=== PATIENT | female | born 2000 | race Two or more races ===

== ENCOUNTER 2025-07-23 22:42 | Inpatient (IN) | payer MEDICAID, SELFPAY ==
[2025-07-23] VITALS (16 sets, daily range): BP systolic 120; BP diastolic 66; PULSE 69–94; RESP 16–99; TEMP 36.9; O2SAT 81–100; BMI 35.0
[2025-07-23 23:15] LABS: ROM Kit Exp Date# 04/11/28; ROM Kit Lot # 58106258; ROM Swab Mixed By: KE; Rupture of Fetal Membranes Positive (Negative); Swb Mxed in Solvent 1 min? Yes
[2025-07-23] MEDS: RINGERS LACTATED 1000 ML 1,000 ML 100 ML IV (23:45)
[2025-07-24] VITALS (59 sets, daily range): BP systolic 110–151; BP diastolic 60–88; PULSE 67–100; RESP 16–25; TEMP 36.6–36.9; O2SAT 97–100; BMI 35.0
[2025-07-24 00:29] LABS: Amphetamine/Metham Scrn,Ur OB Negative (Negative); Benzoylecgonine Screen, Ur OB Negative (Negative); Opiate Screen,Urine OB Negative (Negative); THC Screen,Urine OB Negative (Negative)
[2025-07-24 00:40] LABS: Basophils # (Auto) 0.0 Thou/mm3 (0.0-0.2); Basophils % (Auto) 0 % (0-2.5); Eosinophils # (Auto) 0.1 Thou/mm3 (0.0-0.5); Eosinophils % (Auto) 2 % (0-10); Hematocrit 32.4 % (36.0-46.0); Hemoglobin 9.9 g/dL (12.0-16.0); Immature Granulocytes Auto 0.03 Thou/mm3 (0.00-0.00); Lymphocytes # (Auto) 1.5 Thou/mm3 (1.0-4.8); Lymphocytes % (Auto) 18 % (10-50); Mean Corpuscular HGB Conc 30.6 g/dl (31.0-37.0); Mean Corpuscular Hemoglobin 22.0 pg (25.0-35.0); Mean Corpuscular Volume 72 fL (80-100); Monocytes # (Auto) 0.4 Thou/mm3 (0.0-0.8); Monocytes % (Auto) 5 % (0-12); Neutrophils # (Auto) 6.1 Thou/mm3 (1.8-7.7); Neutrophils % (Auto) 75 % (37-80); Nucleated Red Blood Cell # 0.00 Thou/mm3 (0.00-0.00); Nucleated Red Blood Cell % 0 /100 WBC (0); Platelet Count 248 Thou/mm3 (140-440); RDW Standard Deviation 40.4 fL (36.4-46.3); Red Blood Count 4.51 Miln/mm3 (4.00-5.20); White Blood Count 8.1 Thou/mm3 (3.6-11.0)
[2025-07-24 00:51] LABS: Alanine Aminotransferase < 7 U/L (10-49); Albumin, Serum 4.0 gm/dL (3.5-5.0); Albumin/Globulin Ratio 1.9 (1.2-2.2); Alkaline Phosphatase 198 U/L (46-116); Anion Gap 12 (7-16); Aspartate Amino Transferase 16 U/L (0-34); BUN/Creatinine Ratio 12 Ratio (12-20); Bilirubin,Total 0.5 mg/dL (0.3-1.2); Blood Urea Nitrogen 7 mg/dL (9-23); Calcium 9.2 mg/dL (8.3-10.6); Calcium (Corrected) 9.2 mg/dL (8.5-10.1); Carbon Dioxide 19.3 mMol/L (20.0-31.0); Chloride 108 mMol/L (98-107); Creatinine (Component) 0.6 mg/dL (0.6-1.3); Estimated Creatinine Clearance 158.1 mL/min (>60); Globulin 2.1 gm/dL (2.3-3.5); Glucose 59 mg/dL (74-106); Osmolality,Calculated 273 (275-295); Potassium 4.3 mMol/L (3.4-5.1); Sodium 139 mMol/L (136-145); Total Protein 6.1 gm/dL (5.7-8.2); eGFR > 60 See Note
[2025-07-24 01:20] LABS: HIV (1&2) Antibody Rapid Non-Reactive
[2025-07-24] MEDS: RINGERS LACTATED 1000 ML 1,000 ML 100 ML IV (02:10)
[2025-07-24] MEDS: AZITHROMYCIN INJ 500 MG in SODIUM CHLORIDE 0.9% 250 ML 250 ML 250 MG IV (02:32)
[2025-07-24] MEDS: CITRIC ACID/SODIUM CITR 15 ML UDC (BICITRA) 30 ML PO (03:31)
[2025-07-24] MEDS: ceFAZolin/D5W 2 GM IV 2 GM/100 ML BAG IV (03:31)
[2025-07-24] MEDS: FAMOTIDINE INJ 10 MG/ML VIAL 2 ML 20 MG IV (03:32)
[2025-07-24 03:55] LABS: Syphilis Nonreactive (Nonreactive)
--- NOTE | 2025-07-24 04:47 | ESHP_ITS ---
Documentation for date of: 07/24/25 OB Labor/Induct. HPI History of Present Illness Chief complaint: Ruptured membranes, contractions, previous : 2 Para: 1 Term pregnancies: 0 pregnancies: 1 Living children: 1 History of Abortions: Spontaneous and Elective: 0 History of Vaginal deliveries: 0 History of sections: Yes (2020) History of : No KENDALL: 07/26/25 Gestational Age (weeks): 39 Gestational Age (days): 5 History of present illness: The patient is a 24-year-old -1-0-1 at 39-5/7 weeks with an EDC of 07/26/2025 who presented to labor and delivery reporting ruptured membranes. She stated she had been ruptured since 2:00 in the morning the night before. At the time of presentation to labor and delivery her bag had been broken approximately 22 hours. The patient had just eaten so her surgery was delayed. She reported painful uterine contractions every 5 minutes. She had a history of a x one 3 years ago due to COVID. She stated she could not breathe very well and they had to deliver the baby by to improve her respiratory status. All her care is up to date in [place] per patient. She did not bring any records with her so we messi all labs. History of Present Dating criteria: other (Per patient LMP based on first trimester ultrasound. No records available.) Adequate Care: Yes (Per patient. No records available.) Ultrasounds: other (No records available) Obstetrical complications: none Medical complications: none Labs Maternal Blood Type: A Pos Labs: Negative: RPR and HIV and Unknown: Hepatitis B, Rubella Titre, Chlamydia, Gonorrhea, Herpes Type 1, Herpes Type 2, Group Beta Strep and Covid- 19 Past Medical History Surgical History SURGICAL: Positive Section (2020) Past Medical History Comments PMH COMMENT: Patient denies any significant medical problems including asthma diabetes or hypertension. She reports x 1 in 2021 She had some type of stitches on her leg for some type of accident. Meds Home Medications and Allergies Home Medications ?Medication ?Instructions ?Recorded ?Confirmed ?Type No Known Home Medications 07/23/2507/03 History Allergies Allergy/AdvReac Type Severity Reaction Status Date / Time No Known Allergies Allergy Verified 11/22/25 23:14 OB Exam Physical Exam Vital signs: Temp Pulse Resp BP Pulse Ox O2 Del Method 98.4 F 90 16 120/66 100 Room Air 07/23/25 22:59 07/23/25 23:01 07/23/25 22:59 07/23/25 23:01 07/24/25 03:42 07/23/25 22:46 Constitutional Constitutional: no acute distress Comments: Patient is alert and orient x 3 in no apparent distress Detailed Labor and Delivery Exam Membranes: ruptured Amniotic fluid: clear monitor accelerations: 15x15 monitor decelerations: 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: Moderate (-25) Contraction frequency (min): Every 5 minutes Contraction intensity: Moderate OB Results Labs 07/23/25 23:40 07/23/25 23:40 Labs: Short CBC 07/23/25 Range/Units 23:40 WBC 8.1 (3.6-11.0) Thou/mm3 Hgb 9.9 L (12.0-16.0) g/dL Hct 32.4 L (36.0-46.0) % Plt Count 248 (140-440) Thou/mm3 BMP 07/23/25 23:40 Sodium 139 Potassium 4.3 Chloride 108 H Carbon Dioxide 19.3 L BUN 7 L Creatinine 0.6 Glucose 59 L Calcium 9.2 Liver Function 07/23/25 Range/Units 23:40 Total Bilirubin 0.5 (0.3-1.2) mg/dL AST 16 (0-34) U/L ALT < 7 L (10-49) U/L Alkaline Phosphatase 198 H (46-116) U/L Albumin 4.0 (3.5-5.0) gm/dL OB Assessment & Plan Assessment and Plan (1) Previous section complicating : Status: Acute Assessment and plan: Patient has status post uncomplicated repeat low-transverse section (2) Prolonged antepartum rupture of membranes: Status: Acute
--- NOTE | 2025-07-24 04:58 | OBDSUM_ITS ---
Data (Murray) Data Hx Section: Yes (2020) Maternal Blood Type: A Pos Rubella Titre: Unknown RPR: Non-reactive Labs: Negative: RPR and HIV and Unknown: Hepatitis B, Chlamydia, Gonorrhea, Herpes Type 1, Herpes Type 2 and Group Beta Strep : 2 Term: 0 : 1 Livin Abortions: Spontaneous & Theraputic: 0 Delivery Data (Murray) Labor Data Initiation of labor: Spontaneous ROM date: 07/23/25 ROM time: 02:00 Amniotic membrane rupture type: Spontaneous Amniotic fluid description: Clear Delivery Data EDC: 07/26/25 Date of arrival to unit: 07/23/25 Time of arrival to unit: 22:46 [place] delivery date: 07/24/25 [place] delivery time: 04:09 Gestational age (weeks): 39 Gestational age (days): 5 Placenta delivery date: 07/24/25 Placenta delivery time: 04:10 Delivered by: Tania Deng ([facility]) Delivery nurse: Xuan Willson nurse: edy Dragline Operator Helper at delivery: No Support person(s) at delivery: FOBasilio Other staff at delivery: JEREMY Owens Delivery Method Delivery method: Low Transverse Presentation: Vertex position: OA Anesthesia Type Anesthesia Type: Spinal Delivery Room Medications Delivery room medications: Pitocin 20 u IV Placenta Placenta delivery description: Manual Removal Cord blood sent to lab: No cord blood collection: Cord Blood Type EBL Estimated blood loss (ml): 400 Umbilical Cord cord description: 3 Vessels Additional Procedures See op report for further details Complications Complications: None [place] Data (Murray) Data 's gender: Male weight (gms): 3458.642 g 1 minute: 9 5 minutes: 9
--- NOTE | 2025-07-24 05:03 | ESOP_ITS ---
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 Her bag of been ruptured about 22 hours on presentation. AmniSure was positive and she was found to be grossly ruptured. She also is reporting painful contractions about every 5 minutes. She had a history of C- section x 1. All her care was in [place] and she just moved to [place] in the last few days. No records were available. She was admitted and consented for repeat low-transverse section. Pre-Op diagnosis: 1. IUP 39-5/7 weeks 2. Prolonged rupture of membranes 3. Active labor 4. Previous x 1 5. Unknown group B strep status\no records available. Post-Op diagnosis: Same Anesthesia type: Spinal Procedure description: After obtaining informed consent, the patient was brought back to the operating room and spinal anesthesia administered. She was then prepped and draped in the dorsal supine position with a leftward tilt in a normal sterile fashion. A Sanchez catheter was inserted into the patient's bladder. Patient was given 2 g of Ancef by anesthesia. A Pfannenstiel skin incision was made with a scalpel about an inch higher than her prior scar. This was done as her prior scar was quite wide and low on her abdomen. It was also thickened and abernathy a keloid scar. The Skin incision was carried down to the underlying fascia. The fascia was incised in the midline and the fascial incision extended laterally using [place] scissors. The superior aspect of the fascia was grasped with Ino clamps and the underlying rectus muscles dissected off using blunt and sharp dissection. This was repeated in the inferior aspect of the incision. The rectus muscles were in the midline, and the peritoneum was picked up and entered sharply using Metzenbaums. This was extended superiorly and inferiorly with good visualization of the bladder. The bladder blade was inserted and the uterus was incised in a low transverse fashion above the bladder reflection using a scalpel. The uterine incision was extended laterally using blunt dissection with the surgeon's fingers. The bag quintana was ruptured and clear fluid was noted. The bladder blade was removed and the was delivered atraumatically. As the infant was vigorous at , delayed cord clamping was performed for approximately 1 minute. The cord was then clamped and cut and the was handed off to the waiting pediatric staff. Cord blood was collected and cord gases were saved. The placenta was then manually removed and the uterus was exteriorized and cleared of all clots and debris. The uterine incision was repaired using 0 Monocryl in a running locked fashion. Excellent hemostasis was noted. The uterus was returned to the patient's abdominal cavity and copious irrigation carried out with warm normal saline. The uterine incision was reexamined and noted to be hemostatic. After ensuring the rectus muscles were hemostatic, these were reapproximated in the midline using a running suture of 0 Monocryl. The fascia was closed with 0 Vicryl in a running fashion. The subcutaneous tissues were irrigated and found to be hemostatic. These were reapproximated using a running suture of 2-0 plain. The skin was closed with subcuticular suture of 4-0 Monocryl. As the patient's prior skin piercing, wound to her leg, and prior section incision had a keloid scar, the incision was injected in a subcuticular fashion with dilute betamethasone to prevent future keloiding. The procedure was then terminated. The patient tolerated the procedure well, sponge, lap, needle, and instrument counts were correct x 2. The patient patient went to the recovery awake and in stable condition. The infant was with mom and dad in recovery in stable condition Fluids: crystalloid Fluid amount (mL): 1,000 Urine output (mL): 150 Specimen: none Implants: None Estimated blood loss (ml): 400 Findings: Liveborn male in the OA presentation with no nuchal cord no meconium. Apgars were 9 and 9. Weight was 7 pounds 10 ounces or approximately 3459 g. The placenta was complete spontaneous grossly normal. Tubes uterus ovaries appeared grossly normal. There is very little scar tissue present in the patient's abdomen and her lower uterine segment was thick. Complications: none Surgical staff Joni Mccormick INDUSTRIAL CLEANER Operation Date: 07/24/25 03:45 <No data on this case meets the specified criteria> Diagnosis Discharge Diagnosis (1) Prolonged antepartum rupture of membranes: Status: Acute (2) Previous section complicating : Status: Acute Problem details: Patient's status post uncomplicated repeat low-transverse section Problem List Completed Was Problem List Reviewed/Reconciled?: Yes
--- NOTE | 2025-07-24 07:14 | PC.NURSE ---
07/24/2025 0325: RECEIVED REPORT FROM MILEY TELLEZ RN, PATIENT IN TRIAGE WITH FOB PATIENT IS A REPEAT , RATES PAIN 6/10 WITH CONTRACTIONS, PATIENT PREPPED FOR SURGERY BY ROMAN TELLEZ RN, CONSENTS SIGNED, PATIENT TRANSFERRED TO OB OR VIA BED, UPON ARRIVAL AT OB OR, EFM X2 RESUMED PATIENT, FHR NOTED AT APPROX 135 BPM.
--- NOTE | 2025-07-24 07:45 | PC.LAC ---
07/24/2025 0650: RECEIVED VERBAL ORDERS TO PUT IN POST ORDERS
[2025-07-24] MEDS: OXYTOCIN in NS 20 units 20 UNIT/1,000 ML BAG 125 UNIT IV (08:21)
[2025-07-24] MEDS: DOCUSATE SOD 100 MG CAPSULE PO ×2 (08:21→21:05)
[2025-07-24 08:44] LABS: Chlamydia trachomatis PCR Negative (Not Detect); Neisseria Gonorrhoeae DNA PCR Negative (Not Detect); Trichomonas Negative (Negative)
[2025-07-24 13:26] LABS: Basophils # (Auto) 0.0 Thou/mm3 (0.0-0.2); Basophils % (Auto) 0 % (0-2.5); Eosinophils # (Auto) 0.0 Thou/mm3 (0.0-0.5); Eosinophils % (Auto) 0 % (0-10); Hematocrit 29.0 % (36.0-46.0); Hemoglobin 8.9 g/dL (12.0-16.0); Immature Granulocytes Auto 0.06 Thou/mm3 (0.00-0.00); Lymphocytes # (Auto) 0.5 Thou/mm3 (1.0-4.8); Lymphocytes % (Auto) 3 % (10-50); Mean Corpuscular HGB Conc 30.7 g/dl (31.0-37.0); Mean Corpuscular Hemoglobin 21.7 pg (25.0-35.0); Mean Corpuscular Volume 71 fL (80-100); Monocytes # (Auto) 0.1 Thou/mm3 (0.0-0.8); Monocytes % (Auto) 0 % (0-12); Neutrophils # (Auto) 14.0 Thou/mm3 (1.8-7.7); Neutrophils % (Auto) 96 % (37-80); Nucleated Red Blood Cell # 0.00 Thou/mm3 (0.00-0.00); Nucleated Red Blood Cell % 0 /100 WBC (0); Platelet Count 213 Thou/mm3 (140-440); RDW Standard Deviation 39.8 fL (36.4-46.3); Red Blood Count 4.11 Miln/mm3 (4.00-5.20); White Blood Count 14.6 Thou/mm3 (3.6-11.0)
[2025-07-24 21:20] LABS: Hepatitis B Surface Antigen Non Reactive (Non React); Rubella, IgG Antibody Reactive (Immune)
[2025-07-25] VITALS: BP 108/67; PULSE 78; RESP 17; TEMP 36.8; O2SAT 98
[2025-07-25 03:45] VITALS: BP 113/74; PULSE 86; RESP 18; TEMP 37.1; O2SAT 99
[2025-07-25 07:45] LABS: Basophils # (Auto) 0.0 Thou/mm3 (0.0-0.2); Basophils % (Auto) 0 % (0-2.5); Eosinophils # (Auto) 0.0 Thou/mm3 (0.0-0.5); Eosinophils % (Auto) 0 % (0-10); Hematocrit 27.7 % (36.0-46.0); Immature Granulocytes Auto 0.20 Thou/mm3 (0.00-0.00); Lymphocytes # (Auto) 0.9 Thou/mm3 (1.0-4.8); Lymphocytes % (Auto) 4 % (10-50); Mean Corpuscular HGB Conc 31.8 g/dl (31.0-37.0); Mean Corpuscular Hemoglobin 22.6 pg (25.0-35.0); Mean Corpuscular Volume 71 fL (80-100); Monocytes # (Auto) 0.7 Thou/mm3 (0.0-0.8); Monocytes % (Auto) 3 % (0-12); Neutrophils # (Auto) 21.1 Thou/mm3 (1.8-7.7); Neutrophils % (Auto) 92 % (37-80); Nucleated Red Blood Cell # 0.00 Thou/mm3 (0.00-0.00); Nucleated Red Blood Cell % 0 /100 WBC (0); Platelet Count 258 Thou/mm3 (140-440); RDW Standard Deviation 40.3 fL (36.4-46.3); Red Blood Count 3.90 Miln/mm3 (4.00-5.20); White Blood Count 22.9 Thou/mm3 (3.6-11.0)
[2025-07-25 07:50] LABS: Hemoglobin 8.8 g/dL (12.0-16.0)
[2025-07-25 08:00] VITALS: BP 123/73; PULSE 79; RESP 18; TEMP 36.8; O2SAT 99
[2025-07-25] MEDS: DOCUSATE SOD 100 MG CAPSULE PO ×2 (08:18→20:28)
--- NOTE | 2025-07-25 08:54 | PD.LDPPPRG ---
Subjective Subjective Interval history: The patient is a 24-year-old -1-0-2 postoperative day #1 status post repeat low-transverse section in labor. She delivered approximately 4:00 in the morning on 07/23/2025. This morning she is resting comfortably in bed holding her infant. The father the baby is at bedside. Patient states she is up out of bed, ambulating, voiding, tolerating a general diet. She is passing flatus. Her predelivery hemoglobin is 9.9. Postdelivery hemoglobin is 8.9. I will check one more hemoglobin tomorrow to ensure it is stable and order IV iron today. Exam Vital Signs Temp Pulse Resp BP Pulse Ox O2 Del Method 98.7 F 86 18 113/74 99 Room Air 07/25/25 03:45 07/25/25 03:45 07/25/25 03:45 07/25/25 03:45 07/25/25 03:45 07/25/25 03:45 Narrative Exam Patient is alert and orient x 3 in no apparent distress. Her fundus is firm about 2 cm below her umbilicus. Incision clean dry intact with Dermabond dressing in place. Extremities showed no significant edema or erythema. Objective Labs 07/25/25 07:32 07/23/25 23:40 Labs: Laboratory Results - last 24 hr 07/23/25 07/24/25 07/25/25 23:40 13:14 07:32 WBC 14.6 H D 22.9 H D RBC 4.11 3.90 L Hgb 8.9 L 8.8 L Hct 29.0 L 27.7 L MCV 71 L 71 L MCH 21.7 L 22.6 L MCHC 30.7 L 31.8 RDW Std Deviation 39.8 40.3 Plt Count 213 D 258 D Neut % (Auto) 96 H 92 H Lymph % (Auto) 3 L 4 L [place] % (Auto) 0 3 Eos % (Auto) 0 0 Baso % (Auto) 0 0 Neut # (Auto) 14.0 H 21.1 H Lymph # (Auto) 0.5 L 0.9 L [place] # (Auto) 0.1 0.7 Eos # (Auto) 0.0 0.0 Baso # (Auto) 0.0 0.0 Immature Gran # (Auto) 0.06 H 0.20 H Absolute Nucleated RBC 0.00 0.00 Immature Gran % 0 1 H Nucleated RBC % 0 0 Hep Bs Antigen Non Reactive Rubella IgG Antibody Reactive (Immune) Assessment & Plan Problem List (1) Prolonged antepartum rupture of membranes: Problem details: Patient remains afebrile. White count 14.6 this morning with 96% neutrophils. She was treated with Ancef for 24 hours. Repeat CBC in the morning. Status: Acute (2) Previous section complicating : Problem details: Patient's status post uncomplicated repeat low-transverse section. She is postoperative day #1 doing well today. Status: Acute Assessment and plan: Patient is anemic with a predelivery hemoglobin of 9.9 postdelivery hemoglobin 8.9. Recheck CBC in the morning. Order IV iron for today and tomorrow. Time Spent With Patient Time: Total time spent is greater than 50% in coordination of care (as documented) at patient's floor/unit and/or counseling patient: Time with patient: less than 15 minutes
[2025-07-25] MEDS: FERRIC SOD GLUC INJ 125 MG in SODIUM CHLORIDE 0.9% 100 ML 110 MG IV (09:34)
[2025-07-25 17:00] VITALS: BP 105/50; PULSE 70; RESP 18; TEMP 36.8; O2SAT 99
[2025-07-25 20:00] VITALS: BP 121/75; PULSE 80; RESP 16; TEMP 37; O2SAT 98
[2025-07-26 04:00] VITALS: BP 119/70; PULSE 80; RESP 17; TEMP 37.1; O2SAT 97
[2025-07-26 06:10] LABS: Basophils # (Auto) 0.0 Thou/mm3 (0.0-0.2); Basophils % (Auto) 0 % (0-2.5); Eosinophils # (Auto) 0.0 Thou/mm3 (0.0-0.5); Eosinophils % (Auto) 0 % (0-10); Hematocrit 27.7 % (36.0-46.0); Immature Granulocytes Auto 0.23 Thou/mm3 (0.00-0.00); Lymphocytes # (Auto) 1.8 Thou/mm3 (1.0-4.8); Lymphocytes % (Auto) 9 % (10-50); Mean Corpuscular HGB Conc 30.7 g/dl (31.0-37.0); Mean Corpuscular Hemoglobin 22.2 pg (25.0-35.0); Mean Corpuscular Volume 72 fL (80-100); Monocytes # (Auto) 0.7 Thou/mm3 (0.0-0.8); Monocytes % (Auto) 4 % (0-12); Neutrophils # (Auto) 16.5 Thou/mm3 (1.8-7.7); Neutrophils % (Auto) 86 % (37-80); Nucleated Red Blood Cell # 0.04 Thou/mm3 (0.00-0.00); Nucleated Red Blood Cell % 0 /100 WBC (0); Platelet Count 271 Thou/mm3 (140-440); RDW Standard Deviation 41.7 fL (36.4-46.3); Red Blood Count 3.83 Miln/mm3 (4.00-5.20); White Blood Count 19.3 Thou/mm3 (3.6-11.0)
[2025-07-26 06:53] LABS: Hemoglobin 8.5 g/dL (12.0-16.0)
[2025-07-26 07:28] VITALS: BP 119/64; PULSE 67; RESP 16; TEMP 36.7; O2SAT 98
[2025-07-26] MEDS: FERRIC SOD GLUC INJ 125 MG in SODIUM CHLORIDE 0.9% 100 ML 110 MG IV (08:57)
[2025-07-26] MEDS: DOCUSATE SOD 100 MG CAPSULE PO (08:57)
--- NOTE | 2025-07-26 10:17 | ESPR_ITS ---
Subjective Subjective Interval history: Delivery type: Patient doing well this morning. No acute complaints. Ambulating, tolerating p.o., and voiding without difficulty. HTN/Pre-E screen negative: No CP, SOB, MESA, visual changes, RUQ pain. : Yes Lochia: diminishing Bowel: Flatus + / BM + UOP: Voiding freely Exam Vital Signs Temp Pulse Resp BP Pulse Ox O2 Del Method 98.1 F 67 16 119/64 98 Room Air 07/26/25 07:28 07/26/25 07:28 07/26/25 07:28 07/26/25 07:28 07/26/25 07:28 07/26/25 07:28 Constitutional Constitutional: no acute distress Routine HEENT Exam Head: Present normocephalic and atraumatic Eye: Present EOMI and PERRL ENT: Present mucous membranes moist Routine Neck Exam Neck: Present supple and trachea midline Routine Respiratory Exam Respiratory: Present chest non-tender, lungs clear, normal breath sounds and no resp distress Routine Cardiovascular Exam Cardiovascular: Present RRR Routine Abdominal Exam Abdominal: Present soft and normoactive bowel sounds Routine Extremities Exam Extremities: Present full ROM Routine Skin Exam Skin: Present intact, dry and warm Routine Neurological Exam Neurological: Present alert, oriented X3 and CN II-XII intact Routine Psychiatric Exam Psychiatric: Present normal affect and normal thought process Objective Labs 07/26/25 05:26 07/23/25 23:40 Labs: Laboratory Results - last 24 hr 07/26/25 05:26 WBC 19.3 H RBC 3.83 L Hgb 8.5 L Hct 27.7 L MCV 72 L MCH 22.2 L MCHC 30.7 L RDW Std Deviation 41.7 Plt Count 271 Neut % (Auto) 86 H Lymph % (Auto) 9 L [place] % (Auto) 4 Eos % (Auto) 0 Baso % (Auto) 0 Neut # (Auto) 16.5 H Lymph # (Auto) 1.8 [place] # (Auto) 0.7 Eos # (Auto) 0.0 Baso # (Auto) 0.0 Immature Gran # (Auto) 0.23 H Absolute Nucleated RBC 0.04 H Immature Gran % 1 H Nucleated RBC % 0 Assessment & Plan Problem List (1) Prolonged antepartum rupture of membranes: Status: Acute (2) Previous section complicating : Status: Acute (3) delivery delivered: Status: Acute Assessment and plan: PPD/POD#2 1. Continue routine care 2. Transition to PO meds. 3. Encourage to ambulate/ breast-feed 4. Anticipate discharge home today. Time Spent With Patient Time: Total time spent is greater than 50% in coordination of care (as documented) at patient's floor/unit and/or counseling patient:
--- NOTE | 2025-07-26 10:18 | PD.LDDS ---
DS: Providers Provider Date of admission: 07/23/25 23:36 Primary care physician: Physician No Primary/Family Admitting Provider: Tania Deng MD ([facility]) Attending Provider on Admission: Moo Chawla MD Consults: 07/24/25 07:32 Referral Routine Comment: Attending Provider on DC: Moo Chawla MD Discharging Provider: Moo Chawla MD DS: Diagnosis Discharge Diagnosis (1) delivery delivered: Status: Acute Problem List Completed Was Problem List Reviewed/Reconciled?: Yes Summary/Hosp Course Brief History: The patient is a 24-year-old -1-0-1 at 39-5/7 weeks with an EDC of 07/26/2025 who presented to labor and delivery reporting ruptured membranes. She stated she had been ruptured since 2:00 in the morning the night before. At the time of presentation to labor and delivery her bag had been broken approximately 22 hours. The patient had just eaten so her surgery was delayed. She reported painful uterine contractions every 5 minutes. She had a history of a x one 3 years ago due to COVID. She stated she could not breathe very well and they had to deliver the baby by to improve her respiratory status. All her care is up to date in [place] per patient. She did not bring any records with her so we messi all labs. Peripartum Data Delivery Method: Low Transverse Procedures: Procedures Operation Date: 07/24/25 03:45 Actual Procedure Side Surgeon p in OB Tania Deng ([facility])MD Time Spent with Patient Time attestation: Total time spent providing and/or coordinating discharge services: Exam Vital Signs Temp Pulse Resp BP Pulse Ox O2 Del Method 98.1 F 67 16 119/64 98 Room Air 07/26/25 07:28 07/26/25 07:28 07/26/25 07:28 07/26/25 07:28 07/26/25 07:28 07/26/25 07:28 Discharge Plan Plan Patient Disposition: HOME (Self Care) Patient condition on transfer: Stable Prescriptions/Referrals Prescriptions/Med Rec: New hydrocodone-acetaminophen 5-325 mg tablet 1 tab PO Q6H MDD 4 PRN (Reason: pain) 5 Days Qty: 20 0RF docusate sodium [Stool Softener] 100 mg capsule 100 mg PO QDAY 30 Days Qty: 30 0RF ibuprofen 600 mg tablet 600 mg PO Q6H MDD 4 PRN (Reason: fever or pain) 10 Days Qty: 40 0RF Referrals: No Primary/Family,Physician [Primary Care Provider] Patient/Caregiver Discharge Instructions Meds to Beds: Yes Discharge Activity: activity as tolerated Education Materials: Understanding Blues, Nutrition While , C Section Dc Print Language: Mongolian Stand Alone Forms: Elena Award Info., Patient Portal Info Letter Discharge Order Discharge Orders: Discharge (Routine); Ordered 07/26/25 Ordered By: Moo Chawla Planned Discharge Date 07/26/25
--- NOTE | 2025-07-26 15:56 | PC.SS ---
FOOD SANITARIAN conducted bedside contact with the patient to address nursing referral indicating patient was late to care FOOD SANITARIAN introduced self and role.? At bedside with patient was FOB, Gloria Beltre.? Patient gave permission for FOB to be present during discussion.? FOOD SANITARIAN reviewed basis of referral.? Patient denied late to care.? Patient stated recent re-location to [place].? Prior to delivery patient was residing in [place].? Patient reports receiving OB services at the [facility] clinic in [place].? Patient reports consistency with OB services.? Infant, Christine; is the patient?s second child.? Infant delivered via .? Patient?s other child is 4 years old.? Patient is receiving WIC, SNAP and TANF.? Patient denies history of alcohol/drug abuse.? Patient denies CWS intervention.? Patient denies episodes of domestic violence.? Patient denies possessing a history of mental health, reports no current possession of depression or anxiety.? Patient plans on combo feeding the .? Patient has access to appropriate supplies and equipment; to include a car seat.? FOB will provide transportation upon discharge.? Patient describes possessing support system consisting of FOB and extended family.? FOOD SANITARIAN provided the patient with community resources to include Parenting Network and Warm Line.? No further intervention required at this time, pediatric social worker will be available to address any further concerns.? FOOD SANITARIAN updated bedside nurse.?
--- NOTE | 2025-07-27 07:42 | CHAP ---
Patient was visited by a Spiritual Care Volunteer on 07/26/2025 between 0900 and 1200 and received comfort, encouragement and/or prayer. Patient also received a blessing on infant and family.
== END 2025-07-26 13:15 | disposition home or self-care (01) | DRG 540 ==
LOC: S4SX 07-24 00:30 → S4NX 07-24 03:53
PROVIDERS: Admitting Provider Obstetrics & Gynecology; Visit Provider Obstetrics & Gynecology
PROC: 10D00Z1 Extraction of Products of Conception, Low, Open Approach (ICD-10-PCS; CPT 59514; principal; 2025-07-24 03:30)
DX: O34.211 Maternal care for low transverse scar from previous cesarean delivery (principal); O90.81 Anemia of the puerperium; Z37.0 Single live birth; Z3A.39 39 weeks gestation of pregnancy; Z86.16 Personal history of COVID-19
CPT/HCPCS: 36415; 59025; 59409; 80053; 80307; 84112; 85025; 86703; 86762; 86780; 86850; 86900; 86901; 86923; 87340; 87491; 87591; 87661; 94762; A4217; A4314; A4649; J0456; J0689; J2274; J2590; J2916; J3105; J3490; J7050; J7120; A9270; J1596; J2270

== ENCOUNTER 2025-08-08 00:50 | Emergency (ER) | payer MEDICAID, SELFPAY ==
[2025-08-08 00:51] VITALS: BMI 30.9
[2025-08-08 01:17] VITALS: BP 106/69; PULSE 69; RESP 18; TEMP 36.7; O2SAT 99
--- NOTE | 2025-08-08 01:18 | PD.EDSKIN ---
ED Skin Abcess FB-RME/HPI General Chief complaint: Skin/Abscess/Foreign Body Stated complaint: WANTS STITCHES REMOED FROM ABDOMEN Time Seen by Provider: 08/08/25 00:53 Arrival date/time: 08/08/25 00:50 This is a case of 24-year-old female with no medical history came in in the ER for wound check and possible removal of suture on the pelvic area status post section by Dr. Mackay and was discharged by Dr. Alonzo 2 weeks ago patient denies any redness swelling discharge from the wound there is no abdominal pain there is no pelvic pain there is no fever or chills Limitations: no limitations Related Data Previous Rx's ?Medication ?Instructions ?Recorded docusate sodium 100 mg capsule 100 mg PO QDAY 30 days #30 caps 07/26/25 (Stool Softener) Allergies Allergy/AdvReac Type Severity Reaction Status Date / Time No Known Allergies Allergy Verified 07/23/25 23:14 Review of Systems Review of Systems Systems Reviewed: All systems reviewed, normal except as documented Past Medical History Past Medical History NEUROLOGIC: Negative Neurological Disorders or Seizures CARDIAC: Negative Cardiac Disorders or Congestive Heart Failure RESPIRATORY: Negative Chronic Obstructive Pulmonary Disease (COPD) GASTROINTESTINAL: Negative Gastrointestinal Disorders or Hepatitis GENITOURINARY: Positive Genitourinary Disorders (History of UTI); Negative Renal Disease REPRODUCTIVE: Positive Previous Pregnancies (x1) MUSCULOSKELETAL: Negative Musculoskeletal Disorders ENDOCRINE: Positive Endocrine Disorders (Diagnosed as pre-diabetic); Negative Diabetes Mellitus Type 1 or Diabetes Mellitus Type 2 HEMATOLOGIC: Negative Blood Disorders OTHER HISTORY: Positive Hospitalization (childbirth) and Chicken Pox (as a child); Negative Autoimmune Disease, Down Syndrome, Developmental Delay, Shingles, Falls, Blood Transfusions, Blood Transfusion Reaction, Anesthesia Reactions, Organ Transplant, Chemotherapy, Radiation Therapy, Hyperbaric Therapy, MRSA, VRSA, Vancomycin-Resistant Enterococci, Human Immunodeficiency Virus (HIV), Measles, Mumps, Rubella ([place] Measles), Pertussis, Clostridium Difficile or Cancer Family History FAMILY HISTORY: Positive Family Cardiac Disorders (Maternal side-HTN); Negative Family Psychiatric Problems, Family Respiratory Disorders, Family Gastrointestinal Problems, Family Cancer, Family Surgery or Family Anesthesia Reaction Surgical History SURGICAL: Positive Section (2020); Negative Organ Transplant Social History SMOKING STATUS: Never smoker ED Exam General Limitations: Present no limitations General appearance: Present alert, in no apparent distress and other (Patient is awake alert oriented not in distress nontoxic looking well-hydrated nourished) Head Head exam: Present atraumatic Eye Eye exam: Present normal appearance, PERRL and EOMI ENT ENT exam: Present normal exam, normal oropharynx and mucous membranes moist Neck Neck exam: Present normal inspection, full ROM and trachea midline Chest Chest inspection: Present normal inspection and symmetric chest wall rise Respiratory Respiratory exam: Present normal lung sounds bilaterally; Absent respiratory distress, wheezes, stridor, accessory muscle use or prolonged expiratory phase Cardiovascular Cardiovascular exam: Present regular rate, normal rhythm and normal heart sounds; Absent bradycardia, tachycardia, irregular rhythm, systolic murmur or diastolic murmur Abdominal Exam Abdominal exam: Present soft and normal bowel sounds; Absent distention, tenderness, guarding, rebound, rigidity, diminished bowel sounds, hyperactive bowel sounds, hypoactive bowel sounds or organomegaly Extremities Exam Extremities exam: Present normal inspection and full ROM Back Exam Back exam: Present normal inspection and full ROM Neurological Exam Neurological exam: Present alert, oriented X3, CN II-XII intact, normal gait and reflexes normal; Absent motor sensory deficit Psychiatric Psychiatric exam: Present normal affect and normal mood Skin Skin exam: Present warm, dry, intact, normal color and other (Noted a surgical scar on the pelvic area no redness no swelling nontender no cellulitis no redness no wound dehiscence sutures is intact) Course Quality Measures none Vital Signs Vital signs: Vital Signs Temperature 98.0 F 08/08/25 01:17 Pulse Rate 69 08/08/25 01:17 Respiratory Rate 18 08/08/25 01:17 Blood Pressure 106/69 08/08/25 01:17 Pulse Oximetry (%) 99 08/08/25 01:17 Oxygen Delivery Method Room Air 08/08/25 01:17 Oxygen saturation is 99 percent Skin / Abscess / Foreign Body MDM Narrative MDM Narrative:: This is a case of 24-year-old female with no medical history came in in the ER for wound check and possible removal of suture on the pelvic area status post section by Dr. Mackay and was discharged by Dr. Alonzo 2 weeks ago patient denies any redness swelling discharge from the wound there is no abdominal pain there is no pelvic pain there is no fever or chills physical examination patient is awake alert oriented not in distress nontoxic looking well-hydrated well-nourished abdominal exam is benign nonsurgical no guarding no rebound no rigidity patient noted to have no redness no swelling on the surgical area no tenderness no discharge no wound dehiscence no infection noted I spoke to Dr. Mae I was instructed not to remove the suture follow-up tomorrow to his clinic and he will remove the suture discussed with the patient patient understood follow-up with PCP in 2 days for reevaluation for any worsening symptoms or any emergent concern return precaution in the ER is advsied Patient was discharged with comfortable condition walking with stable gait. Patient verbalized no further complains explained diagnosis and answered patient question. Patient is comfortable with the proposed management plan including the need to follow up with his/her primary care physician and any specialist if applicable Discussed patient for any urgent condition or worsening sx, He/She needed to go to emergency room immediately or call 911. Patient acknowledge the responsibility to follow up as instructed and to monitor her/his symptoms. For any persistence of the symptoms for more than 3-5 days return precaution advised. Discussed the result of the test and was given printed discharge instruction Patient data External records reviewed:: [facility] previous records Clinical information provided by:: patient Social determinants that could affect healthcare access:: none Patient has the following chronic illnesses:: None How is presenting disease/condition affected by chronic disease/condition?: no chronic disease Evaluation data The following diagnostics were reviewed and interpreted by me:: other (specify) (none) Lab and/or radiology exams considered but not ordered:: none Interpretation Summary: none Medications / Prescriptions Medications or Prescriptions considered but not ordered:: none Medication administrations:: none Consultations Consultation(s) initiated? (list below): Yes Consultation #1 (Physician, Specialty, Details): dr mae see my mdm notes Diagnosis Skin/Abscess Differential Diagnosis: abscess of skin or subcutaneous tissue, cellulitis and other (no infection) Most likely diagnosis given after review of the tests above:: wound check s/p sc section Admission Indicated Admission indicated?: not indicated Explain why admission is indicated or not indicated:: not indicated Admission Request Was there a request for admission?: No Admission Attestation Admission request attestation: not indicated Disposition Plan Disposition Plan: Discharge Discharge Attestation Discharge Attestation: The patient and all family members were given an opportunity to ask questions and understood the discharge instructions. Discharge instructions specifically effects, indications for sooner follow up or return to the emergency department, and the expected course of current diagnosis. Patient condition: Stable Discharge Plan Plan Patient Disposition: HOME (Self Care) Patient condition on transfer: Stable Prescriptions/Referrals Prescriptions/Med Rec: No Action docusate sodium [Stool Softener] 100 mg capsule 100 mg PO QDAY 30 Days Qty: 30 0RF Referrals: Cammy (Referring),MD Moo [Referring Provider, HOME HEALTH ADMINISTRATOR] - 08/08/25 Referral Note: Follow-up tomorrow for reevaluation wound check and possible suture removal Problem List Clinical Impression: Visit for wound check, Status post section Patient/Caregiver Discharge Instructions Education Materials: After a , C Section Dc, ED Wound Care Additional Instructions: It is very important to follow-up with Dr. Mae clinic tomorrow for further evaluation and treatment wound check and possible removal of suture follow-up with your PCP in 2 days for reevaluation worsening symptoms or any emergent concern or signs and symptoms infection redness swelling discharge pressure wound pain fever chills return to the emergency room immediately or call 911 continue to take and apply the medication that was prescribed by previous provider Print Language: [place] Stand Alone Forms: Elena Award Info., Patient Portal Info Letter PA/RAILROAD SHOP INSPECTOR Supervising Physician PA/RAILROAD SHOP INSPECTOR Supervising Physician: Dr. Melecio Eastman
== END 2025-08-08 01:41 | disposition home or self-care (01) ==
LOC: SERX 01:46
PROVIDERS: Emergency Provider Emergency Medicine
DX: Z48.01 Encounter for change or removal of surgical wound dressing (principal)
CPT/HCPCS: 99281